=== PATIENT | female | born 2000 | race Caucasian/White ===

== ENCOUNTER 2018-10-01 00:15 | Emergency (ER) | payer MEDICAID, OTHER ==
[2018-10-01] MEDS ORDERED: ONDANSETRON 4 MG/2 ML VIAL ONE (00:24)
[2018-10-01] MEDS ORDERED: NS 1,000 ML IV ONE (00:25)
[2018-10-01] MEDS ORDERED: ONDANSETRON 4 MG/2 ML VIAL IVP ONE (00:25)
--- NOTE | 2018-10-01 00:25 | EDPHY ---
H & P Source: EMS Exam Limitations: Intoxication Time Seen by Provider: 10/01/18 00:22 HPI/ROS: HPI: This is a 17-year-old female who presents with Chief Complaint: Alcohol intoxication Location: body Quality: Alcohol intoxication Duration: Unknown Signs and Symptoms: no fever, + nausea, + vomiting, no hematemesis, no blood in stool, no abdominal bloating, no diarrhea, no back pain, no urinary symptoms, no vaginal bleeding/discharge, no indigestion, no chest pain, no shortness of breath Timing: Acute Severity: [id number] Context: Patient is student at [employer] presents accompanied by [facility] [employer] with complaints of alcohol intoxication. Patient is slurring words and dry heaving upon my arrival to bedside. Laboratory studies, IV fluids and IV Zofran 4 mg given on route by EMS. Patient reports that she was with her "sisters and was drinking "lots of vodka this evening." Modifying Factors: None Comment: ROS: Limited due to intoxication MEDICAL/SURGICAL/SOCIAL HISTORY: Medical history: Generally healthy. Does not take any regular medications. Surgical history: Denies Social history: Student at [employer]. Alcohol use. Family history noncontributory. CONSTITUTIONAL: Intoxicated, polite and cooperative, teenage white female, awake and alert, no obvious distress HEENT: Atraumatic and normocephalic, PERRL, EOMI. Nares patent; no rhinorrhea; no nasal mucosal edema. Tympanic membranes clear. Oropharynx clear, no exudate and moist pink mucosa. Airway patent. No lymphadenopathy. No meningismus. Cardiovascular: Normal S1/S2, tachycardia, regular rhythm, without murmur rub or gallop. PULMONARY/CHEST: Symmetrical and nontender. Clear to auscultation bilaterally. Good air movement. No accessory muscle usage. ABDOMEN: Soft, nondistended, nontender, no rebound, no guarding, no peritoneal signs, no masses or organomegaly. No CVAT. EXTREMITIES: 2/2 pulses, strength 5/5, no deformities, no clubbing, no cyanosis or edema. NEUROLOGICAL: no focal neuro deficits. GCS 12. Slurred speech. Ambulatory with moderate assistance. SKIN: Warm and dry, no erythema. no rash. Good capillary refill. (Elian,Terra) Constitutional: Initial Vital Signs Temperature (C) 36.6 C 10/01/18 00:23 Heart Rate 81 10/01/18 00:23 Respiratory Rate 16 10/01/18 00:23 Blood Pressure 121/76 H 10/01/18 00:23 O2 Sat (%) 96 10/01/18 00:23 O2 Delivery Mode Room Air Allergies/Adverse Reactions: Unable to Assess Allergy (Unverified 10/01/18 01:19) Home Medications: Medication Instructions Recorded Unobtainable 10/01/18 Medical Decision Making ED Course/Re-evaluation: Vital signs reviewed and stable upon arrival. Placed on cardiac care unit nurse. Continue IV fluids and given another IV Zofran 4 mg for a total of 8 mg. Patient will continue to be a monitor until more sober. Currently maintaining airway without respiratory depression. 0115: End of shift. Signed over to Dr. Fam pending patient becoming more sober, able to ambulate without assistance or ataxia and likely discharge home. This patient was seen under the supervision of my secondary supervising physician. I evaluated care for this patient attending. Discussed this patient with Dr. Fam. (Sarita Plummer) Differential Diagnosis: Differential diagnosis includes alcohol intoxication. (Sarita Plummer) Other Provider: 0125 care assumed from SHABNAM Plummer pending improvement mental status secondary to alcohol intoxication. 0530 Patient is now awake and appropriate. Ambulating unassisted to the bathroom. No current complaints. Patient is tolerating oral fluids. Patient is ready for discharge with sober ride. (Gerardo Fam) - Data Points Medications Given: Discontinued Medications Sodium Chloride (Ns) 1,000 mls @ 0 mls/hr IV EDNOW ONE; Wide Open PRN Reason: Protocol Stop: 10/01/18 00:26 Last Admin: 10/01/18 02:31 Dose: Not Given Ondansetron HCl (Zofran) 4 mg IVP EDNOW ONE Stop: 10/01/18 00:26 Last Admin: 10/01/18 00:59 Dose: 4 mg Departure - Departure Disposition: Home, Routine, Self-Care Clinical Impression: Alcoholic intoxication without complication Condition: Good Instructions: Abuse of Alcohol (ED) Additional Instructions: Please refrain from drinking alcohol excessively. Referrals: BRIANDA Walker,. [Clinic] - As per Instructions
[2018-10-01 06:47] VITALS: BP 99/60
== END 2018-10-01 06:46 | disposition home or self-care (01) ==
DX: F10.920 Alcohol use, unspecified with intoxication, uncomplicated (principal); E86.9 Volume depletion, unspecified
CPT/HCPCS: 96374; J2405